=== PATIENT | male | born 1965 | race Caucasian/White ===

== ENCOUNTER 2019-12-15 19:05 | Emergency (ER) | payer MEDICARE, MEDICAID ==
[~2019-12-15] VITALS: Ht 172.7 cm; Wt 79.4 kg
--- NOTE | 2019-12-15 19:26 | NUR ---
ED Nurse Note: pt walked into ED from home using cane c/o left groin pain 09/13 radiating to left leg, pt reports history of testicular CA and inguinal hernia and takes norco for pain but recently ran out of medication and now pain is uncontrolled.
[2019-12-15 19:32] VITALS: BP 148/100
[2019-12-15] MEDS ORDERED: Morphine Sulfate 2mg/ml Inj(IV/IM USE ONLY) IM ONE (19:45)
[2019-12-15] MEDS ORDERED: NORCO 7.5-3251 EACH ORAL (19:46)
[2019-12-15 19:55] VITALS: BP 155/89
--- NOTE | 2019-12-15 19:55 | NUR ---
ER DISCHARGE NOTE: Patient is cleared to be discharged per ERMD. Pt reported pain relief currently 3/. Encouraged pt to stay 15 minutes after morphine administration to monitor for s/e but pt refused. Pt is aox4, on room air, with stable vital signs. pt was given discharge paperwork and paper prescriptions. Pt was able to verbalize understanding, pt id band removed. pt is able to ambulate with steady gait. pt took all belongings.
--- NOTE | 2019-12-15 20:12 | Emergency Room Report ---
History of Present Illness General Chief Complaint: Lower Back Pain or Injury Source: Patient Present Illness HPI Disclaimer: Please note that this report is being documented using DRAGON technology. This can lead to erroneous entry secondary to incorrect interpretation by the dictating instrument. HPI: Is a 54-year-old male with a history of HIV undetectable viral load on retrovirals, prior lymphoma, orchiectomy and hernia repair presents for evaluation of worsening left-sided groin pain. Patient states after his hernia repair, orchiectomy and surgery for lymphoma and lymph node dissection in the left groin he has had chronic pain for the past several years. Worsening over the past few years following with pain management at [facility]. On the of this month he is scheduled for inferior hypogastric plexus block at [facility]. Typically uses Tylenol Motrin however the pain is becoming unman ageable on these medications. He was seen at [facility] given a brief course of narcotic pain medications which he states helped. He is requesting a short refill until he can get his nerve block procedure. Denies any new injury. Denies dysuria, urinary retention and recently seen urology for uroscopy which was reportedly unremarkable. Denies fever, chills, nausea, vomiting. No other abdominal pain reported. No other symptoms reported today. 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 EOMI. Resp: Normal work of breathing Abdomen: Soft, nontender, nondistended. : Single testicle in anatomic position. Nontender no overlying edema or erythema. There is tenderness to palpation in the groin region on the left side without palpable mass or deformity. Pain is localized over prior surgical scar. No overlying signs of infection. Skin: Intact. Surgery scar in left groin clean dry and intact. MSK: Normal tone and bulk. Moving all extremities. No obvious deformity. Neuro: Awake and alert. Mentating appropriately Medical Decision Making Diagnostic Impression: Primary Impression: Groin pain ER Course 54-year-old male presents for evaluation of chronic left groin pain requesting prescription medications. According to patient this is chronic. No new symptoms are present. He is otherwise well-appearing I do not believe he requires emergent labs or imaging in the emergency department today. Review of these cures report does show a single prescription for narcotics consistent with the patient's history. Patient appears to reasonable I will prescribe a short course of pain medication until he can be seen at his pain management doctor for his nerve block procedure. Instructed him that he should he develop any new symptoms that are out of line with his typical pain he should return to emergency department for reevaluation. He agrees to this treatment plan. Last Vital Signs Date Time Temp Pulse Resp B/P (MAP) Pulse Ox O2 Delivery O2 Flow Rate FiO2 12/15/19 19:55 98.0 74 18 155/89 100 Room Air Disposition: HOME, SELF-CARE Condition: Stable Scripts Hydrocodone Bit/Acetaminophen 7.5-325* (NORCO 7.5-325*) 1 Each Tablet 1 TAB ORAL Q6H PRN for For Pain, #12 TAB 0 Refills Prov: Faisal Colindres MD 12/15/19 Referrals: [facility] Additional Instructions: Follow-up with your pain management doctor for planned procedure. Return with new or worsening symptoms. Faisal Colindres MD Dec 15, 2019 20:12
== END 2019-12-15 19:55 | disposition home or self-care (01) ==
LOC: EMR 19:25
DX: R10.2 Pelvic and perineal pain (principal); B20 Human immunodeficiency virus [HIV] disease; Z90.79 Acquired absence of other genital organ(s); I10 Essential (primary) hypertension
CPT/HCPCS: 96372; 99283; J2270